=== PATIENT | male | born 2000 | race Caucasian/White ===

== ENCOUNTER 2024-12-20 09:28 | Emergency (ER) | payer SELFPAY ==
[~2024-12-20] VITALS: Ht 167.6 cm; Wt 72.0 kg
[2024-12-20 09:41] VITALS: O2SAT 98
[2024-12-20 14:32] VITALS: BP 154/91; PULSE 88; RESP 17; TEMP 37.2; O2SAT 98
== END 2024-12-20 14:35 | disposition home or self-care (01) ==
LOC: ER 09:28
DX: J06.9 Acute upper respiratory infection, unspecified (principal); B97.89 Other viral agents as the cause of diseases classified elsewhere; Z20.822 Contact with and (suspected) exposure to COVID-19
CPT/HCPCS: 87426; 87804; 99283